=== PATIENT | male | born 1995 | race Caucasian/White ===

== ENCOUNTER 2018-04-05 09:41 | Emergency (ER) | payer OTHER, SELFPAY ==
--- NOTE | 2018-04-05 09:43 | ED_ITS ---
HPI - General Adult General Chief complaint: Recheck/Abnormal Lab/Rx Stated complaint: Out of Meds Time Seen by Provider: 04/05/18 09:43 Source: patient and EMS Mode of arrival: EMS Limitations: no limitations History of Present Illness HPI narrative: 23-year-old male arrives by EMS with a suitcase in his pet rat. He states that 2 days ago he ate some meth to try to get high. He states that he has been sober for 3 years but did meth 2 days ago. He states that last evening he got into an argument with his downstairs neighbor so he left his house and went stated a hotel. At some point over the past couple hours he was confronted by a ?circus hand ?who informed him that he was in trouble for having a possession of meth. He stated that he was ?detained ?by this circus hand who told him that he could leave so he called the paramedics to come and get him to come to the hospital to be evaluated. Patient informed me that he wanted to ? get checked out ?since he did meth a couple days ago. He has no complaints currently. Related Data Previous Rx's Medication Instructions Recorded alprazolam 0.5 mg tablet 0.5 mg PO DAILY PRN #20 tab 03/17/18 citalopram 40 mg tablet 40 mg PO DAILY #30 tab 03/17/18 trazodone 100 mg tablet 100 mg PO DAILY #30 tab 03/17/18 Allergies Allergy/AdvReac Type Severity Reaction Status Date / Time No Known Drug Allergies Allergy Verified 04/05/18 09:56 Review of Systems Review of Systems All systems reviewed & are unremarkable except as noted in HPI and below PFSH Medical History Anxiety (Acute) Drug abuse (Acute) Depression (Acute) Surgical History No pertinent past surgical history (Acute) Family History Brother Age: 16 Mental health problem Grandmother Age: 75 Diabetes mellitus Mother Age: 42 Mental health problem Social History Smoking Status: Former smoker Tobacco: How many years used: 7 alcohol intake: current (Most days) Exam Initial Vital Signs Initial Vital Signs: Vital Signs Temperature 98.2 F 04/05/18 09:48 Pulse Rate 135 H 04/05/18 09:48 Respiratory Rate 20 04/05/18 09:48 Blood Pressure 150/104 H 04/05/18 09:48 Pulse Oximetry 97 04/05/18 09:48 Const General: cooperative, healthy appearing, comfortable, well developed, well groomed and No acute distress Orientation: alert, awake, oriented x3, oriented to person, oriented to place, oriented to time and not confused HENMT Head: normal to inspection and normocephalic Resp Effort & Inspection: normal respiratory effort Auscultation: clear to auscultation bilaterally Cardio Rate: tachycardic Rhythm: regular rhythm Pulses: radial pulses present GI Inspection: non-distended Palpation: soft and No firm Skin Lesions: no lesions Rashes: no rashes Neuro General: alert, awake and oriented x3 Cognition: normal cognition Speech: speech normal Gait: normal gait Motor: muscle tone normal throughout Sensory Exam: no sensory deficits noted Extrem General: normal to inspection and capillary refill normal Psych Appearance: grossly normal and well kempt Speech and Movement: speech and movement normal Affect: normal affect Thought Process: normal Thought Content: no hallucinations, no homicidality and suicidality Course Orders Ordered: Discontinued Medications Citalopram Hydrobromide (Celexa) 40 mg PO NOW ONE Stop: 04/05/18 09:55 Vital Signs - 8 hr 04/05/18 09:48 Temperature 98.2 F Pulse Rate 135 H Respiratory Rate 20 Blood Pressure 150/104 H Pulse Oximetry 97 Medical Decision Making [facility] [place] Narrative Medical decision making narrative: Patient has no complaints today. He stated that he called the ambulance so that he could remove himself from the situation where he was being evaluated by a ?circus hand ?he is tachycardic today but is not having any chest pain. I do suspect this is secondary to his drug use. Patient denies suicidality or homicidality. I will refill his Celexa. He asked me to refill his Xanax and trazodone but I informed him that he needs to contact his primary care doctor for this. He does have a primary care doctor in the area. Hold on further workup for now. Discharge Plan Departure Patient Disposition: Home Clinical Impression: Drug abuse, Encounter for medication refill, Tachycardia Instructions: Drug Abuse and Drug Addiction Activity Restrictions/Additional Instructions: You need to contact your primary care doctor to get a refill of your trazodone and Xanax. I highly recommend that you abstain from using intoxicating substances. No driving for the next 24 hr or in the future if you decide to take intoxicating substances return to the emergency department for any new symptoms Prescriptions: No Action alprazolam [Xanax] 0.5 mg tablet 0.5 mg PO DAILY PRN (Reason: anxiety) Qty: 20 RF: 0 citalopram 40 mg tablet 40 mg PO DAILY Qty: 30 RF: 5 trazodone 100 mg tablet 100 mg PO DAILY Qty: 30 RF: 5
[2018-04-05 09:48] VITALS: BP 150/104; PULSE 135; RESP 20; TEMP 36.8; O2SAT 97; BMI 27.1
[2018-04-05] MEDS: CITALOPRAM 20 MG TABLET 40 MG PO (10:08)
--- NOTE | 2018-04-05 10:09 | PC.NURSE ---
provider aware pt is tachycardic. no new orders at this time. Police officier at bedside. Parents contacted per pt request. pt appears in no acute distress at this time.
[2018-04-05 10:19] VITALS: BP 153/80; PULSE 131; RESP 20; TEMP 36.8; O2SAT 100
== END 2018-04-05 10:22 | disposition home or self-care (01) ==
PROVIDERS: Emergency Provider Emergency Medicine; PCP Family Medicine
DX: F19.90 Other psychoactive substance use, unspecified, uncomplicated (principal); R00.0 Tachycardia, unspecified
CPT/HCPCS: 99282; 99283